=== PATIENT | female | born 1960 | race Caucasian/White ===

== ENCOUNTER 2024-06-07 13:47 | Outpatient (OUT) | payer OTHER, SELFPAY | END 2024-06-07 13:48 | disposition home or self-care (01) | LOC: PST 13:51 | PROVIDERS: Visit Provider Surgery | DX: Z01.818 Encounter for other preprocedural examination (principal); Z12.11 Encounter for screening for malignant neoplasm of colon ==

== ENCOUNTER 2024-06-16 07:44 | Day surgery (SDC) | payer OTHER, SELFPAY ==
--- NOTE | 2024-06-14 | OP_ITS ---
OPERATION DATE: 06/16/2024 PREOPERATIVE DIAGNOSIS: Colorectal screening. POSTOPERATIVE DIAGNOSIS: 4 mm rectal polyp. PROCEDURE: Colonoscopy to cecum with cold snare polypectomy x1. SURGEON: Doron Earl M.D. ANESTHESIA: Monitored anesthesia care. ESTIMATED BLOOD LOSS: Less than 1 mL. INDICATIONS AND CONSENT: Patient is a 63-year-old female, presents for colorectal screening. Indications, risks, benefits, alternatives of proceeding with colonoscopy were explained extensively to the patient, including the risks of bleeding, colon perforation or anesthetic complications. All of her questions were answered. Informed consent was obtained. PROCEDURE: Patient brought to the operating room, placed in the left lateral decubitus position. Monitored anesthesia care was provided. Rectal exam was performed which showed no masses or blood. The scope was inserted into the anal canal. Under direct visualization was advanced. It was advanced to the cecum where cecal markings were clearly identified. This was aided with abdominal compression. There was noted to be a good prep. Upon withdrawal of the scope, mucosal surfaces were carefully examined. There were no mass lesions or inflammatory changes. No significant diverticulosis. Within the upper rectum, there was noted to be a 4 mm sessile polyp that was hyperemic. This was removed with cold snare with good hemostasis. The scope was retroflexed in the anal canal. There was no significant hemorrhoidal disease. Scope was then withdrawn. Patient tolerated procedure well, was sent to recovery room in good condition. f/u surveillance colonoscopy should likely be in 5 years, but will depend on the pathology report. CC: Patient?s family physician [email or web address]
--- OUTSIDE RECORDS SUMMARY | 2024-06-16 07:49 | XMS_ITS | CCD ---
Author Organization [facility] Inform ion Partnership [facility] Care Team Providers Care 3Rd Mate Name Role Phone VIKY PEREZ Admitting Unavailable VIKY PEREZ Attending Unavailable Viky Perez MD Primary Care Provider [phone] ISAURA KELLY Attending Unavailable HOY, VIKY M Referring Unavailable HOY, VIKY M Primary Care Unavailable ISAURA KELLY Attending Unavailable BROOKS REY Referring Unavailable HOY, VIKY M Primary Care Unavailable JULI FLAHERTY Attending Unavailabl e SLADEY, VIKY M Referring Unavailable HOY, VIKY M Primary Care Unavailable HOY, VIKY M Referring Unavailable HOY, VIKY M Primary Care Unavailable LEONID SU Attending Unavailable HOY, VIKY M Referring Unavailable HOY, VIKY M Primary Care Unavailable Ja Perezlas Primary Care Physician Doron BARRON Attending Unavailable Allergies Allergy Classification Reported Allergen(s) Allergy Type Date of Onset Reaction(s) Facility (2 sources) Ciprofloxacin; Translations: [Cipro] Drug Allergy [facility] Repository (2 sources) traMADol; Translations: [Ultram] Drug Allergy [facility] Repository (9 sources) Amoxicillin / Clavulanate; Translations: [AMOXICILLIN-PO T CLAVULANATE] Drug Allergy 1 Hives, Vomiting (disorder) [facility] (9 sources) Ciprofloxacin; Translations: [CIPROFLOXACIN] Drug Allergy 0 Hives, Eruption of skin (disorder) [facility] (8 sources) Purified Protein Derivative of Tuberculin; Translations: [TUBERCULIN PPD] Drug Allergy 1 Hives [facility] (3 sources) Tramadol-Celeco xib; Translations: [TRAMADOL-CELEC OXIB] Propensity to adverse reactions to drug 4 [facility] ([facility] sources) levoFLOXacin; Translations: [levofloxacin] Drug Allergy Vomiting (disorder) [facility] (1 source) traMADol; Translations: [tramadol] Drug Allergy Weal (disorder) [facility] (1 source) Amoxicillin / Clavulanate; Translations: [Augmentin] Drug Allergy [facility] Repository Medications Current Medications Medication Drug Class(es) Dates Sig (Normalized) Sig (Original) Albuterol (1 source) beta2-Adrenergic Agonist Start: 05-03-2024 take 2 puff(s) by inhalation every four hours Albuterol (Eqv-ProAir HFA) 2 puff(s), Inhalation, q4hr Shortness of breath or wheezing, Refill(s) 0 Start Date: 05/03/24 Status: Ordered cetirizine hydrochloride 10 mg oral tablet (1 source) Histamine-1 Receptor Antagonist Start: 05-03-2024 take 2 tablets by mouth once daily cetirizine 10 mg Tab 20 mg = 2 tab(s), Oral, Daily, Refills(s) 0 Start Date: 05/03/24 Status: Ordered dextromethorphan hydrobromide 1.5 mg/ml / pyrilamine maleate 1.5 mg/ml oral solution (1 source) Uncompetitive N-ldivdp-T-asparta te Receptor Antagonist, Sigma-1 Agonist Start: 02-12-2024 take 1 mL by mouth every eight hours Pyrilamine-Dextrome thorphan ([place] Dm) 7.5-7.5 mg/5 mL liquid Active 10 ML PO Every 8 hours 150 5 February 12, 2024 12:00am diphenhydrAMINE hydrochloride 25 mg oral capsule (6 sources) Histamine-1 Receptor Antagonist take 1 capsule by mouth every six hours as needed diphenhydrAMINE (BENADRYL) 25 mg capsule Take 1 capsule (25 mg total) by mouth every 6 (six) hours as needed for itching or allergies. 0 Active estrogens, conjugated (mcc) 0.625 mg/ml vaginal cream (6 sources) Estrogen conjugated estrogens (PREMARIN) vaginal cream Insert 0.625 g into the vagina every other day. 0 Active eszopiclone 3 mg oral tablet (7 sources) Start: 05-03-2024 take 1 tablet by mouth once daily at bedtime as needed eszopiclone 3 mg Tab 3 mg = 1 tab(s), Oral, Once a day (at bedtime), PRN for insomnia, Refills(s) 0 Start Date: 05/03/24 Status: Ordered take 1 tablet by mouth at bedtim e eszopiclone (LUNESTA) 3 mg tablet Take 1 tablet (3 mg total) by mouth in the morning. Take immediately before bedtime . 0 Active fexofenadine hydrochloride 180 mg oral tablet (6 sources) Histamine-1 Receptor Antagonist take 1 tablet by mouth once daily fexofenadine (ORLANDO) 180 mg tablet Take 180 mg by mouth daily. 0 Active gabapentin, bulk, 100 % powder (6 sources) Start: 10-30-19 gabapentin, bulk, 100 % powder Indications: Chronic hip pain after total replacement of left hip joint Formula #8E: baclo2%+diclo3%+DMSO 5%+gaba6%+lido2%+fabiano lo2%. Apply 1-2 gm topically to affected area TID-QID. 120 g 11 10/30/2023 Active ibuprofen 800 mg oral tablet (7 sources) Nonsteroidal Anti-inflammatory Drug Start: 05-03-20 take 1 tablet by mouth every eight hours as needed for pain ibuprofen 800 mg Tab 800 mg = 1 tab(s), Oral, q8hr, PRN as needed for pain, Refills(s) 0 Start Date: 05/03/24 Status: Ordered take 1 tablet by merlin th every eight hours as needed for pain ibuprofen (ADVIL,MOTRIN) 600 mg tablet T ag 1 tablet (600 mg total) by mouth every 8 (eight) hours as needed for pain. 0 Active levothyroxine sodium 0.05 mg oral tablet (7 sources) l-Thyroxine Start: 05-03-2024 take 1 tablet by mouth once daily Synthroid 50 mcg Tab 50 mcg = 1 tab(s), Oral, Daily, Refills(s) 0 Start Date: 05/03/24 Status: Ordered take 1 tablet by mouth in the mo rning SYNTHROID 50 mcg tablet Take 1 tablet (50 mcg total) by mouth in the morning. 0 Active losartan potassium 50 mg oral tablet (7 sources) Angiotensin 2 Receptor Keith Start: 05-03-2024 take 1 tablet by mouth once daily losartan 50 mg Tab 50 mg = 1 tab(s), Oral, Daily, Refills(s) 0 Start Date: 05/03/24 Status: Ordered take 1 tablet by mouth in the mo rning losartan (COZAAR) 50 mg tablet Take 1 tablet (50 mg total) by mouth in the morning. 0 Active methylPREDNISolone 4 mg oral tablet (1 source) Corticosteroid Start: 02-12-2024 take 1 tablet by mouth once Methylprednisolone (Medrol (Sven)) 4 mg tablets,dose pack Active 0 PO per package directions February 12, 2024 12:00am PO PER PKG DIR for 6 days montelukast 10 mg oral tablet (1 source) Leukotriene Receptor Antagonist Start: 05-03-2024 take 1 tablet by mouth once daily Singulair 10 mg Tab 10 mg = 1 tab(s), Oral, Daily, Refills(s) 0 Start Date: 05/03/24 Status: Ordered pramipexole dihydrochloride 0.5 mg oral tablet (3 sources) Nonergot Dopamine Agonist Start: 05-03-2024 take 1 tablet by mouth once daily pramipexole 0.5 mg oral tablet 0.5 mg = 1 tab(s), Oral, Daily, Refills(s) 0 Start Date: 05/03/24 Status: Ordered take 1 tablet by merlin th three times daily pramipexole (MIRAPEX) 0.5 mg tablet Take 1 tablet (0.5 mg total) by mouth 3 (three) times a day. 0 Active tiZANidine 4 mg oral tablet (7 sources) Central alpha-2 Adrenergic Agonist Start: 05-03-2024 take 2 tablets by mouth at bedtime tiZANidine 4 mg Tab 8 mg = 2 tab(s), Oral, Bedtime, Refills(s) 0 Start Date: 05/03/24 Status: Ordered tiZANidine (MARIA ELENA FLEX) 4 mg tablet Take 1 tablet (4 mg total) by mouth as needed for muscle spasms. 0 Active Trelegy Ellipta 200 mcg-62.5 mcg-25 mcg/inh inhalation powder (1 source) Start: 05-03-2024 take 1 puff(s) by inhalation once daily Trelegy Ellipta 200 mcg-62.5 mcg-25 mcg/inh inhalation powder 1 puff(s), Inhalation, Daily, Refill(s) 0 Start Date: 05/03/24 Status: Ordered Completed/Discontinued Medications Medication Drug Class(es) Dates Sig (Normalized) Sig (Original) betamethasone 3 mg/ml / betamethasone acetate 3 mg/ml injectable suspension (1 source) Corticosteroid Start: 12-08-2023 End: 12-08-2023 betamethasone acet & sod phos (CELESTONE) injection 12 mg Problems Active Problems Problem Classification Problem Date Documented Date Episodic/Chronic Allergic reactions (1 source) Eczema 05-03-2024 Episodic Anxiety disorders (1 source) Anxiety 05-03-2024 Chronic Esophageal disorders (1 source) Gastroesophageal reflux disease 05-03-2024 Chronic Essential hypertension (1 source) Hypertensive disorder 05-03-2024 Chronic Headache; including migraine (1 source) Migraine 05-03-2024 Chronic Neoplasms of unspecified nature or uncertain behavior (1 source) Neoplasm of meninges 05-03-2024 Episodic Osteoarthritis (6 sources) Arthritis of hip; Translations: [Unilateral primary osteoarthritis, unspecified hip] Onset: 04-04-2021 04-04-2021 Chronic Other connective tissue disease (1 source) History of total replacement of left hip joint; Translations: [Presence of left artificial hip joint] 12-08-2023 Chronic Other connective tissue disease (2 sources) Presence of left artificial hip joint; Translations: [Presence of left artificial hip joint] Onset: 10-30-2023 Chronic Other nervous system disorders (1 source) Other chronic pain; Translations: [Other chronic pain] Onset: 10-30-2023 Chronic Other non-traumatic joint disorders (1 source) Chronic pain following left total hip arthroplasty; Translations: [Pain in left hip] 10-30-2023 Episodic Other non-traumatic joint disorders (1 source) Pain in left hip; Translations: [Pain in left hip] Onset: 10-30-2023 Episodic Other screening for suspected conditions (not mental disorders or infectious disease) (1 source) Screening for malignant neoplasm of colon done; Translations: [Encounter for screening for malignant neoplasm of colon] Onset: 05-25-2024 Episodic Other upper respiratory disease (1 source) Seasonal allergic rhinitis 05-03-2024 Chronic Residual codes; unclassified (1 source) Insomnia 05-03-2024 Episodic Residual codes; unclassified (1 source) Tobacco user 05-03-2024 Episodic Spondylosis; intervertebral disc disorders; other back problems (5 sources) Lumbar spondylosis; Translations: [Spondylosis without myelopathy or radiculopathy, lumbar region] Onset: 10-30-2023 10-30-2023 Chronic Spondylosis; intervertebral disc disorders; other back problems (6 sources) Low back pain; Translations: [Low back pain, unspecified back pain laterality, unspecified chronicity, unspecified whether sciatica present] Onset: 12-08-2023 10-30-2023 Episodic Thyroid disorders (1 source) Hypothyroidism 05-03-2024 Chronic Unclassified (1 source) Low back pain, unspecified; Translations: [Low back pain, unspecified] Onset: 10-30-2023 Unclassified (1 source) Lumbar stenosis with neurogenic claudication Onset: 10-30-2023 Unclassified (1 source) Emphysema 05-03-2024 Unclassified (1 source) Patient encounter status 05-25-2024 Past or Other Problems Problem Classification Problem Date Documented Date Episodic/Chronic Complication of device; implant or graft (6 sources) Pain due to hip joint prosthesis; Translations: [Pain due to internal orthopedic prosthetic devices, implants and grafts, initial encounter] Onset: 06-12-2023 06-12-2023 Episodic Other connective tissue disease (6 sources) Tendinitis of hip; Translations: [Other specified enthesopathies of left lower limb, excluding foot] Onset: 06-12-2023 06-12-2023 Episodic Other connective tissue disease (7 sources) Trochanteric bursitis of left hip; Translations: [Trochanteric bursitis, left hip] Onset: 06-12-2023 06-12-2023 Episodic Other connective tissue disease (1 source) Trochanteric bursitis, left hip; Translations: [Trochanteric bursitis, left hip] Onset: 06-12-2023 Episodic Results Test Name Value Interpretation Reference Range Facil ity Ambulatory Visit Summaryon 0 05-25-2024 Ambulatory Visit Summary Ambulatory Visit Summary ERASTO PAIGEBETINA Aguilar :1960 Visit Date:05/25/2024 Ambulatory Visit Instructions Your Diagnosis Screening for malignant neoplasm of colon Your Care Team Attending Physician - ANDERSON BROWN, Doron Jaquez Primary Care Physician - Viky Perez MD This Is Your Medications List Contact prescribing physician if questions or concerns albuterol (Albuterol (Eqv-ProAir HFA)) cetirizine (cetirizine 10 mg Tab) eszopiclone (eszopiclone 3 mg Tab) fluticasone/umeclidi nium/vilanterol (Trelegy Ellipta 200 mcg-62.5 mcg-25 mcg/inh inhalation powder) ibuprofen (ibuprofen 800 mg Tab) levothyroxine (Synthroid 50 mcg Tab) losartan (losartan 50 mg Tab) montelukast (Singulair 10 mg Tab) pramipexole (pramipexole 0.5 mg oral tablet) tizanidine (tiZANidine 4 mg Tab) Procedures Performed Abdominal hysterectomy, Arthroplasty of left hip, Cataract extraction, Cholecystectomy, Open fracture of tibia AND fibula, Repair of ventral hernia, Rotator cuff repair, Tonsillectomy and adenoidectomy. Discharge Vitals Heart Rate (Peripheral) 72 Respiratory Rate 16 Blood Pressure 142/82 Height 162.5 cm Height 64 in Weight 58.5 kg Weight 128.7 lb BMI 22.15 Medications What How Much When Instructions Unchanged albuterol (Albuterol (Eqv-ProAir HFA)) 2 Puffs Inhalation Every 4 hours as needed for Shortness of breath or wheezing Contact prescribing physician if questions or concerns Unchanged cetirizine (cetirizine 10 mg Tab) 2 Tablets By Mouth Every day Contact prescribing physician if questions or concerns Unchanged eszopiclone (eszopiclone 3 mg Tab) 1 Tablets By Mouth Once a day (at bedtime) as needed for for insomnia Contact prescribing physician if questions or concerns Unchanged fluticasone/ umeclidinium/ vilanterol (Trelegy Ellipta 200 mcg-62.5 mcg-25 mcg/ inh inhalation powder) 1 Puffs Inhalation Every day Contact prescribing physician if questions or concerns Unchanged ibuprofen (ibuprofen 800 mg Tab) 1 Tablets By Mouth Every 8 hours as needed for as needed for pain Contact prescribing physician if questions or concerns Unchanged levothyroxine (Synthroid 50 mcg Tab) 1 Tablets By Mouth Every day Contact prescribing physician if questions or concerns Unchanged losartan (losartan 50 mg Tab) 1 Tablets By Mouth Every day Contact prescribing physician if questions or concerns Unchanged montelukast (Singulair 10 mg Tab) 1 Tablets By Mouth Every day Contact prescribing physician if questions or concerns Unchanged pramipexole (pramipexole 0.5 mg oral tablet) 1 Tablets By Mouth Every day Contact prescribing physician if questions or concerns Unchanged tizanidine (tiZANidine 4 mg Tab) 2 Tablets By Mouth At bedtime Contact prescribing physician if questions or concerns Allergies Augmentin (Emesis) Cipro (Rash) Levaquin (Emesis) Ultram (Hives) Problems Ongoing - Any problem that you are currently receiving treatment for. Anxiety Eczema Emphysema Gastroesophageal reflux disease Hypertensive disorder Hypothyroidism Insomnia Lumbar spondylosis Meningioma Migraine Screening for malignant neoplasm of colon Seasonal allergic rhinitis Tobacco user Patient Survey You may receive a survey via text or e-mail asking about your office visit. Please share your experience with us by completing your survey. We appreciate your feedback and thank you for choosing us for your care. Normal [facility] [place] AMB TRANSORAMINAL EPIDURA L INJon 12-30-2023 [place] AMB TRANSORAMINAL EPIDURAL INJ [place] AMB TRANSORAMINAL EPIDURAL INJ CLINICAL INFORMATION: Lumbar spondylosis IMPRESSION: * Intraoperative fluoroscopy provided. The reference air kerma was 2.08 mGy. Finalized by Larry Gotti MD on 12/30/2023 10:43 AM [facility] $ Large Joint Injection: L g reater trochanteric bursaon 12-08-2023 Leonid Su MD 12/09/2023 7:13 PM $ Large Joint Injection: L greater trochanteric bursa on 12/08/2023 10:36 AM Indications: pain Details: 22 G needle, lateral approach Medications: 12 mg betamethasone acet & sod phos 6 mg/mL Outcome: tolerated well, no immediate complications The patient was instructed to use ice, NSAIDs, or Tylenol for pain as needed. Patient was also educated on possibility for blood glucose elevation following the injection. The patient will call with any signs or concerns. Procedure, treatment alternatives, risks and benefits explained, specific risks discussed. Patient was prepped and draped in the usual sterile fashion. MANUALLY TRANSCRIBED RESULTS [facility] Vital Signs Date Time Vital Sign Value Performing Clinician Rabia hurtado 05-25-2024 13:22-0400 Blood Pressure Location Doron BARRON [facility] 05-25-2024 13:22-0400 Diastolic blood pressure 82 mm[Hg] Doron BARRON [facility] 05-25-2024 13:22-0400 Heart rate 72 /min Doron BARRON [facility] 05-25-2024 13:22-0400 Respiratory rate 16 /min Doron BARRON [facility] 05-25-2024 13:22-0400 Systolic blood pressure 142 mm[Hg] Doron BARRON [facility] 02-12-2024 09:22-0400 Body height 162.56 cm [facility] 02-12-2024 09:22-0400 Body mass index (BMI) [Ratio] 23 kg/m2 [facility] 02-12-2024 09:22-0400 Body temperature 96.4 [degF] [facility] 02-12-2024 09:22-0400 Body weight 60.83 kg [facility] 02-12-2024 09:22-0400 Diastolic blood pressure 80 mm[Hg] [facility] 02-12-2024 09:22-0400 Heart rate 101 /min [facility] 02-12-2024 09:22-0400 Respiratory rate 18 /min [facility] 02-12-2024 09:22-0400 SaO2% (BldA) [Mass fraction] 98 % [facility] 02-12-2024 09:22-0400 Systolic blood pressure 130 mm[Hg] [facility] 12-30-2023 09:00-0400 Diastolic blood pressure 76 mm[Hg] Isaura Kelly MD Work Phone: [facility] 12-30-2023 09:00-0400 Heart rate 72 /min Isaura Kelly MD Work Phone: [facility] [employer] [facility] 12-30-2023 09:00-0400 Respiratory rate 16 /min [facility] 12-30-2023 09:00-0400 Systolic blood pressure 136 mm[Hg] [facility] Kelly [facility] 12-08-2023 09:30-0500 Body height 162.6 cm Leonid Su MD [facility] 12-08-2023 09:30-0500 Body mass index (BMI) [Ratio] 22.31 kg/m2 Leonid Su MD [facility] 12-08-2023 09:30-0500 Body weight 58.97 kg Leonid Su MD [facility] 10-30-2023 09:55-0500 Body height 162.6 cm Isaura Kelly MD [facility] 10-30-2023 09:55-0500 Body mass index (BMI) [Ratio] 22.31 kg/m2 Isaura Kelly MD [facility] 10-30-2023 09:55-0500 Body weight 58.97 kg Isaura Kelly MD Work Phone: [facility] Encounters Encounter Date Encounter Type Care Provider Facility Start: 05-25-2024 End: 05-25-2024 ambulatory Doron BARRON [facility] Start: 05-25-2024 End: 05-25-2024 Patient encounter procedure Doron BARRON [facility] Start: 04-20-2024 ambulatory Doron BARRON Facility:[facility] Start: 02-12-2024 End: 02-12-2024 ambulatory [facility] Work Phone: Start: 02-12-2024 End: 02-12-2024 Patient encounter procedure [facility] Work Phone: Start: 12-30-2023 End: 12-30-2023 ambulatory [facility] Start: 12-30-2023 End: 12-30-2023 Patient encounter procedure Isaura Kelly MD Work Phone: [facility] Comment on above: Lumbar stenosis with neurogenic claudication (Primary Dx) Start: 12-08-2023 End: 12-08-2023 ambulatory LEONID SU [facility] Start: 12-08-2023 End: 12-08-2023 Office outpatient visit 15 minutes Leonid Su MD [facility] Comment on above: Trochanteric bursiti s of left hip (Primary Dx); History of total hip arthroplasty, left; Lumbar stenosis with neurogenic claudication Start: 12-05-2023 Orders Only [facility] Comment on above: Lumbar spondylosis ( Primary Dx) Start: 12-02-2023 End: 12-02-2023 ambulatory [facility] Start: 12-02-2023 End: 12-02-2023 Patient encounter procedure Juli Flaherty DO Work Phone: [facility] Comment on above: Lumbar stenosis with neurogenic claudication Start: 12-02-2023 Telephone encounter Andrew Flaherty DO Work Phone: [facility] Start: 10-30-2023 End: 10-30-2023 ambulatory [facility] Start: 10-30-2023 End: 10-30-2023 Office consultation new/estab patient 60 min Isaura Kelly MD Work Phone: [facility] Comment on above: Lumbar spondylosis ( Primary Dx); Chronic hip pain after total replacement of left hip joint; Low back pain, unspecified back pain laterality, unspecified chronicity, unspecified whether sciatica present Start: 10-25-2020 Patient encounter procedure VIKY PEREZ Facility: Procedures Date Procedure Procedure Detail Performing Clinician Start: 12-08-2023 Follow-up visit Follow-up LEONID SU Start: 12-08-2023 Arthrocentesis aspir &/inj major jt/bursa w/o us Leonid Su MD Work Phone: Abdominal hysterectomy Edgar cyr NILL Cholecystectomy Doron NILL Comment on above: x 3 Extraction of cataract Edgar cyr NILL Open fracture of tib ia AND fibula (disorder) Doron NILL Repair of joint of left hip Doron NILL Repair of musculoten dinous cuff of shoulder Doron NILL Tonsillectomy and adenoidectomy Doron NILL Plan of Treatment Date Care Activity Detail Author Start: 12-08-2024 Adult BMI Screening Adult BMI Screening [facility] Start: 12-08-2024 Tobacco Screening Tobacco Screening [facility] Start: 10-30-2024 Adult BMI Screening Adult BMI Screening [facility] Start: 09-18-2024 Tobacco Screening Tobacco Screening [facility] Start: 03-25-2024 End: 03-25-2024 Patient encounter procedure 03/25/2024 9:10 AM EDT Office Visit [facility] [address] [place] [id number] Leonid Su MD [address] [place] [address] [facility] Start: 02-25-2024 End: 02-25-2024 Patient encounter procedure 02/25/2024 11:00 AM EDT Office Visit [facility] [address] [facility] [address] [place] [id number] Isaura Kelly MD [address], [facility] [address] [place] [address] [facility] Start: 12-08-2023 End: 12-08-2023 Patient encounter procedure [facility] Start: 12-05-2023 End: 12-05-2024 RF Guidance for injection of Lumbar spine Fluoroscopy AMB transforaminal epidural inj Imaging Routine Lumbar spondylosis Expected: 12/05/2023, Expires: 12/05/2024 [facility] Work Phone: Comment on above: Expected: 12/05/2023, Expires: Start: 12-02-2023 End: 12-02-2023 Patient encounter procedure 12/02/2023 2:45 PM EST Procedure visit [facility] [address] [facility] [address] [place] [phone] Juli Flaherty DO [address] [facility] [address] [place] [address] [facility] Start: 06-20-2023 COVID-19 Vaccine ( season) COVID-19 Vaccine ( season) [facility] Start: 06-20-2023 Influenza vaccination Influenza Vaccine [facility] Start: 2011 Administration of varicella zoster vaccine Zoster (Shingles) Vaccine (1 of 2) [facility] Start: 1980 DTaP,Tdap and Td Vaccines (1 - Tdap) DTaP,Tdap and Td Vaccines (1 - Tdap) [facility] Start: 1973 Depression Screening Depression Screening [facility] Immunizations Immunization Date Immunization Notes Care Provider Fa cility 08-10-2022 influenza virus vaccine, unspecified formulation Isaura Kelly MD Work Phone: [facility] 11-22-2020 COVID-19, mRNA, LNP- S, PF, 100mcg/0.5mL Dose Isaura Kelly MD [facility] Comment on above: Result Comment: 2023: [id number] 10-25-2020 COVID-19, mRNA, LNP- S, PF, 100mcg/0.5mL Dose Isaura Kelly MD Work Phone: [facility] Comment on above: Result Comment: 2023: [id number] Payers Date Payer Category Payer Unknown [id number] 2023 Unknown AN[employer]M [employer] OUT OF STATE PPO/TRUST [id number] 2023-Present [phone] [id number] [place] [address] [id number] 2023 Unknown [id number] 1960 Unknown [id number] 1960 Unknown [id number] 1960 Unknown [id number] 1960 Unknown [id number] 1960 Unknown [id number] 1960 Unknown [id number] 1960 Unknown [id number] 1958 Self-pay Social History Date Type Detail Facility Start: 10-07-2023 End: 05-25-2024 Tobacco smoking status NHIS Ex-smoker [facility] End: 10-20-2016 History of tobacco use Current smoker [facility] End: 10-20-2016 History of tobacco use Cigarette Smoker [facility] Start: 10-31-2020 End: 10-07-2023 Cigarettes smoked current (pack per day) - Reported 1 [facility] Start: 10-07-2023 Tobacco use and exposure Smokeless tobacco non-user [facility] Start: 10-07-2023 End: 12-08-2023 Alcohol intake Lifetime non-drinker (finding) [facility] Start: 03-22-2020 End: 10-31-2020 Alcohol Use Disorder Identification Test - Consumption [AUDIT-C] [facility] How often to you hav e a drink containing alcohol? Never [facility] Average Number of Drinks Not on file [facility] Start: 1960 Sex Assigned At Female [facility] Start: 12-14-2021 Gender identity Identifies as female gender (finding) [facility] Start: 12-14-2021 Sexual orientation Heterosexual (finding) [facility] Medical Equipment Procedure Code Equipment Code Equipment Origin al Text Equipment Identifier Dates Hd Fem 36mm Biol ox Lexi S - [id number] Start: 04-04-2021 Functional Status Date Assessment Result Facility 05-25-2024 Functional Status N/A [facility] [place] Clinical Notes 10-30-2023 to 05-25-2024 Discharge Amaris Kelly MD - 12/30/2023 8:40 AM Dina Su MD - 12/08/2023 9:30 AM Shaun Bird CMA - 12/05/2023 8:26 AM Gracia Flaherty DO - 12/02/2023 2:45 PM EST Note Date & Type Note Facility 05-25-2024 Note General Surgery Offi ce/Clinic Note Chief Complaint consultation for colonoscopy HPI Staff 63 year old female presents on consultation from Dr. Perez for screening colonoscopy. Denies abdominal or rectal pain. No rectal bleeding or change in bowel habits. Denies nausea or vomiting. No unexplained weight loss. Never had colonoscopy in the past. No known family history of colon cancer. History of Present Illness 63 yo female with h/o htn, hypothyroidism, COPD, migraines, lumbar spondylosis, GERD, referred for colorectal screening; denies change in bms or blood in stools, no abd complaints; abdominal operations significant for cholecystectomy, YOU, ventral hernia repair with mesh, no previous colonoscopy; on ibuprofen prn, no asa; former smoker; no fmhx of colon cancer or IBD. Review of Systems PHQ Score Initial Depression Screen Score: 0 SCORE ROS - Provider Constitutional: no fever, no sweats, no weight loss. Eyes: no glasses, no blurred vision, no visual loss. ENMT: no dentures, no hoarseness, no swallowing difficulties, no hearing loss, no ear infection(s), no nose bleeds. Cardiovascular: normal blood pressure, no chest pain, regular heartbeat, no heart murmur. Respiratory: no shortness of breath, no cough, no asthma, no wheezing. Gastrointestinal: no nausea, no vomiting, no diarrhea, no constipation, no blood in stool, no change in bowel habits, no abdominal pain, no hepatitis. Genitourinary: no kidney stones, no urine infection, no dysuria. Musculoskeletal: no pain, no weakness. Skin: no changing moles, no rash, no skin lumps. Neurologic: no seizures, no epilepsy, no headache. Psychiatric: no emotional or psychiatric problem. Heme/Lymph: no bleeding problems, no anemia, no blood clots, no transfusions. Allergy/Immunologic: no swollen lymph nodes/glands, no IV drug abuse. Other: Additional ROS info: Except as noted in the above Review of Systems and in the History of Present Illness, all other systems have been reviewed and are negative or noncontributory. Physical Exam Vitals & Measurements HR: 72(Peripheral) RR: 16 BP: 142/82 HT: 64 in HT: 162.5 cm WT: 58.5 kg WT: 128.7 lb BMI: 22.15 HEENT: normal conjunctiva, sclera clear, no scleral icterus, EOM intact, PERRLA, oral mucosa moist without lesions. Neck: trachea midline, no mass, symmetric, no thyromegaly or nodules, no adenopathy Respiratory: lungs CTA, respirations non labored. Cardiovascular: regular rate and rhythm, no murmur, no pedal edema or varicosities. Gastrointestinal: soft, non distended, no tenderness, no masses, no palpable hernias, diastasis recti no, no hepatosplenomegaly; normal bs Lymphatic: no cervical adenopathy, no suprclavicular adenopathy. Musculoskeletal: normal gait, digits and nails without infection, nodes, cyanosis, clubbing. Skin: no rashes, no lesions, no ulcers, no subcutaneous nodules, induration. Psychiatric/Neuro: oriented to time, place, person, judgement normal, affect appropriate for age, insight intact, no focal deficits. Tests: review of old records completed , Discussed surgical options, risks, and possible complications with patient. Assessment/Plan 1. Screening for malignant neoplasm of colon (Z12.11: Encounter for screening for malignant neoplasm of colon) plan colonoscopy under anesthesia, informed consent obtained. Follow-up No qualifying data available Problem List/Past Medical History Ongoing Anxiety Eczema Emphysema Gastroesophageal reflux disease Hypertensive disorder Hypothyroidism Insomnia Lumbar spondylosis Meningioma Migraine Screening for malignant neoplasm of colon Seasonal allergic rhinitis Tobacco user Historical No qualifying data Procedure/Surgical History Abdominal hysterectomy, Arthroplasty of left hip, Cataract extraction, Cholecystectomy, Open fracture of tibia AND fibula, Repair of ventral hernia, Rotator cuff repair, Tonsillectomy and adenoidectomy. Medications Albuterol (Eqv-ProAir HFA), 2 puff(s), Inhalation, q4hr, PRN cetirizine 10 mg Tab, 20 mg= 2 tab(s), Oral, Daily eszopiclone 3 mg Tab, 3 mg= 1 tab(s), Oral, Once a day (at bedtime), PRN ibuprofen 800 mg Tab, 800 mg= 1 tab(s), Oral, q8hr, PRN losartan 50 mg Tab, 50 mg= 1 tab(s), Oral, Daily pramipexole 0.5 mg oral tablet, 0.5 mg= 1 tab(s), Oral, Daily Singulair 10 mg Tab, 10 mg= 1 tab(s), Oral, Daily Synthroid 50 mcg Tab, 50 mcg= 1 tab(s), Oral, Daily tiZANidine 4 mg Tab, 8 mg= 2 tab(s), Oral, Bedtime Trelegy Ellipta 200 mcg-62.5 mcg-25 mcg/inh inhalation powder, 1 puff(s), Inhalation, Daily Allergies Augmentin (Emesis) Cipro (Rash) Levaquin (Emesis) Ultram (Hives) Social History Alcohol - Denies Alcohol Use, 05/25/2024 Substance Abuse - Denies Substance Abuse, 05/25/2024 Tobacco Former smoker, quit more than 30 days ago Tobacco Use:. Never Smokeless Tobacco Use:. Cigarettes, 1 per day. Started age 20.0 Years. Stopped age 58 Years., 05/25/2024 Family History Hyperte (more content not included)... [facility] Comment on above: Result Comment: Elec tronically Signed By: ANDERSON BROWN, Doron Gross.anson\Date and Time Signed: 05/25/24 13:55 EDT 12-30-2023 Instructions Ne Steve RN - 12/30/2023 8:42 AM EDT EPIDURAL STEROID INJECTION DISCHARGE INSTRUCTIONS: Physical Medicine and Rehabilitation has recommended an Epidural Steroidal Injection for you in the office today. An epidural steroid injection (JUNI) is a procedure to inject steroid medicine into the epidural space. The epidural space is between your spinal cord and vertebrae. Steroids reduce inflammation and fluid buildup in your spine that may be causing pain. The following is information that he would like for you to have: Contents of the injection.....................Th e injection consisted of two medications; Cortisone (anti-inflammatory that may take 2-3 days to take effect, in some cases up to two weeks) and lidocaine (a numbing agent that will last 2-3 hours). Once lidocaine wears off, you may have an increase in your pain. We strongly encourage icing the affected area for 20 minutes, 3-4 times per day. Post injection instructions..................It is recommended that you refrain from any high-level activities for approximately 24-48 hours. You may remove the bandage before you go to bed the day of your procedure. You may take a shower, but do not take a bath or soak in a hot tub for at least 48 hours. You may ice the injection site to prevent soreness if soreness occurs. Do not drive or use heavy machinery for 24 hours. Steroid injections alone will not control your pain. The injections are meant to be used with other treatments, such as physical therapy. POSSIBLE SIDE EFFECTS Skin discoloration................... .............Individuals may experience some skin discoloration locally at the site of injection. Steroid flare-up........................ ............There is the possibility of an increase in discomfort within 48 hours following the injection. This is called a flare. To help avoid this, adhere to the activity restriction mentioned above. Infection....................... .........................There is <1% chance of infection. If you notice any signs of infection (redness, warmth, drainage, fever greater than 100 ) should call the Physical Medicine and Rehabilitation office immediately at [phone]. Diabetic Patients........................ .........In the case of steroid use, an increase in blood sugar or hyperglycemia may occur. Please monitor your blood sugar closely for the next few days. If your blood sugar becomes significantly elevated please either contact this office, your Primary Care Physician, or seek immediate medical attention. WHEN TO CONTACT THE DOCTOR'S OFFICE You have nausea or vomiting. Your face or neck is red for a few days and you feel warm. You have more pain than you had before the procedure. You have swelling in your hands or feet. You have questions or concerns about your condition or care. WHEN TO SEEK IMMEDIATE MEDICAL ATTENTION Blood soaks through your bandage. Your wound is red, swollen, or draining pus. You have a fever or chills, severe back pain, and the procedure area is sensitive to the touch. You have a seizure. You have trouble moving your legs. You have weakness or numbness in your legs that persists for more than 3 hours following the injection. You cannot control when you urinate or have a bowel movement. Patients that have stopped medications for this procedure should contact the prescribing provider for instructions regarding when to restart medication(s). You can contact our office at any time at . If you are calling after hours or on the weekend you may contact the Emergency number given when you call. Follow up with your healthcare provider as directed: Please have your questions written down so you remember to ask them during your next visit. documented in this encounter [facility] [employer] [facility] 12-30-2023 History of Presen t illness Narrative SUBJECTIVE Vladimir Paige is a 63 y.o. female here today for a transforaminal epidural steroid injection All of the potential risks of the planned procedure was discussed with Vladimir today. These include, but are not limited to, bleeding (including epidural hematoma, in the case of epidural injections); infection; spinal headache due to dural puncture; and allergic reaction. In the case of steroid use an increase in blood sugar or hyperglycemia may occur (especially in diabetic patients). Fluid retention, elevated blood pressure, facial flushing are also potential side effects with steroid use. Vladimir reported understanding of these potential side effects and did consent to the procedure as planned. Vladimir did sign the informed consent in my presence and is willing to proceed with the above-mentioned procedure today. The following portions of the Her history were reviewed and updated as appropriate: allergies, current medications, past family history, past medical history, past social history, past surgical history and problem list. Allergies Allergen Reactions Augmentin [Amoxicillin-Pot Clavulanate] Hives Ciprofloxacin Hives Tramadol-Celecoxib Hives Patient reported Tuberculin Ppd Hives Current Outpatient Medications Medication Sig Dispense Refill ibuprofen (ADVIL,MOTRIN) 600 mg tablet Take 1 tablet (600 mg total) by mouth every 8 (eight) hours as needed for pain. conjugated estrogens (PREMARIN) vaginal cream Insert 0.625 g into the vagina every other day. diphenhydrAMINE (BENADRYL) 25 mg capsule Take 1 capsule (25 mg total) by mouth every 6 (six) hours as needed for itching or allergies. eszopiclone (LUNESTA) 3 mg tablet Take 1 tablet (3 mg total) by mouth in the morning. Take immediately before bedtime . fexofenadine (ORLANDO) 180 mg tablet Take 180 mg by mouth daily. gabapentin, bulk, 100 % powder Formula #8E: baclo2%+diclo3%+DMSO5%+gaba6%+li do2%+prilo2%. Apply 1-2 gm topically to affected area TID-QID. 120 g 11 losartan (COZAAR) 50 mg tablet Take 1 tablet (50 mg total) by mouth in the morning. pramipexole (MIRAPEX) 0.5 mg tablet Take 1 tablet (0.5 mg total) by mouth 3 (three) times a day. SYNTHROID 50 mcg tablet Take 1 tablet (50 mcg total) by mouth in the morning. tiZANidine (ZANAFLEX) 4 mg tablet Take 1 tablet (4 mg total) by mouth as needed for muscle spasms. No current facility-administered medications for this visit. PRE-PROCEDURE DIAGNOSIS 1. Lumbar stenosis with neurogenic claudication POST-PROCEDURE DIAGNOSIS 1. Lumbar stenosis with neurogenic claudication Date of Procedure: December 30, 2023 Time of Procedure: 9:03 AM PROCEDURE NOTE PROCEDURE PERFORMED: 1) Left L4-L5 Interspace Transforaminal Epidural Injection 2) Fluoroscopic needle guidance REASON FOR PROCEDURE: Back Pain with radicular symptoms PHYSICIAN: Isaura Kelly MD MEDICATIONS INJECTED: 1.0 mL of Dexamethasone 10mg/ml per level 0.5 ml of lidocaine preservative free at each level listed 0.4ml Omnipaque SEDATION: None LOCAL ANESTHETIC INJECTED: 5 mL of 1% lidocaine per site TECHNIQUE: Time-out was taken to identify the correct patient, procedure and side prior to starting the procedure. Lying in a prone position, She was prepped and draped in the usual sterile fashion using Betadine x 3 and a fenestrated drape. The area to be injected was determined under fluoroscopic guidance. Local anesthetic was given by raising a skin wheal and going down to the hub of a 25-gauge 1.5-inch needle. The 5.0-inch 22-gauge Quincke needle was advanced toward the pedicle at each of the above-named nerve root interspace(s). The needle was advanced to the final position via a lateral fluoroscopic intermittent image. Omnipaque was injected and showed epidural spread and there was no vascular runoff. After a negative aspiration, the medication was then injected. The procedure was completed without complications and was tolerated well. She was monitored after the procedure. The patient (or responsible green party) was given post-procedure and discharge instructions to follow at home. The patient was discharged in stable condition. A follow-up appointment was made. ESTIMATED BLOOD LOSS: None COMPLICATIONS: None She was instructed to await the effects of the steroid over the next several days, patient was given post injection instructions, to continue with physical therapy as tolerated after 48hours ASSESSMENT: 1. Lumbar stenosis with neurogenic claudication PLAN/DISCHARGE: No orders of the defined types were placed in this encounter. Vladimir Paige underwent transforaminal epidural steroid injections of the above-mentioned levels today. Fluoroscopy was used for image guidance and needle placement. Images were saved. There were no complications during the procedure. The patient tolerated it well. she was given written and verbal post injection instructions. she was instructed to go home and take it easy for the next 48-72 hours. she willfollow-up as scheduled. It was explained to her that the procedure may need to be repeated in the future depending on the results of today's injection. she reported understanding of these instructions and signed discharge paperwork to that effect No follow-ups on file. There are no Patient Instructions on file for this visit. documented in this encounter [facility] 12-08-2023 History of Presen t illness Narrative Associated Order(s): $ Large Joint Injection: L greater trochanteric bursa Post-Procedure Diagnose(s): Trochanteric bursitis of left hip Images from the original note were not included. [facility] [address] [facility] [id number] Name: Vladimir Paige : 1960 Chief Complaint Patient presents with Left Hip - Follow-up EMG FU Left troch bursa [facility] 11.30.23- effective one month. Emg 2.13.24- [facility]. Awaiting to get injection in back with pain management Subjective Vladimir Paige is a 63 y.o. year old female who presents to the office today for recheck of her left hip. She underwent a total hip arthroplasty in March [address] Flores. I initially saw her in May of 2023 with continued pain. She was diagnosed with trochanteric bursitis and has also seen Dr. Rey for lumbar stenosis. She was last seen by me on 09/18/2023 at which time she had a trochanteric bursal injection. She notes almost 100% pain relief for 1 month. Since then she does feel her pain has been better than what it was initially. Most days she rates her pain anywhere from 2 to 4/10. Still majority of her pain is lateral. She has no longer experiencing anterior thigh pain or concerns of falling. She has had an EMG since her last visit with me and has seen Pain Management. She is awaiting approval for injections for her back. She continues to take Motrin and Tylenol as needed. Past Medical, Family, Surgical, and Social History, as well as Medications, Allergies, and Review of Systems were reviewed and can be seen in the patient's chart. Objective Body mass index is 22.31 kg/m . Vladimir is alert and oriented, in no acute distress. Left hip has mild tenderness to palpation of the trochanteric bursa, improved in comparison to last visit. She is able to do straight leg raise. Hip flexion to 90 . Her hip is freely movable with internal and external rotation but she does report some lateral discomfort with terminal internal rotation. She has 5/5 hip flexor and abductor strength. 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 There was no acute or chronic denervation on needle exam. Assessment 1. Trochanteric bursitis of left hip - $ Large Joint Injection: L greater trochanteric bursa 2. History of total hip arthroplasty, left 3. Lumbar stenosis with neurogenic claudication Plan: Polly's EMG revealed some concern for possible neuropathy from her back. She is in the approval process for epidural injections with pain management. In regards to her hip however she had almost 100% pain relief for a month following previous trochanteric bursal injection. Overall she feels her hip symptoms are improving and was interested in having a repeat injection today. Procedure note can be seen below. I would like to see her back in 3 months, assuming she will have had the epidural injections for re-evaluation. She is agreeable with this plan. $ Large Joint Injection: L greater trochanteric bursa on 12/08/2023 10:36 AM Indications: pain Details: 22 G needle, lateral approach Medications: 12 mg betamethasone acet & sod phos 6 mg/mL Outcome: tolerated well, no immediate complications The patient was instructed to use ice, NSAIDs, or Tylenol for pain as needed. Patient was also educated on possibility for blood glucose elevation following the injection. The patient will call with any signs or concerns. Procedure, treatment alternatives, risks and benefits explained, specific risks discussed. Patient was prepped and draped in the usual sterile fashion. I, Leonid Su MD, personally performed the face to face evaluation on this patient. I discussed with the patient and confirmed the accuracy and completeness of the aforementioned history prepared by the [facility] practice provider, and I personally performed the clinical examination of the patient. I discussed the treatment plan with the patient. I have updated the above note prior to signing to reflect my evaluation of the patients condition and treatment plan. Other significant notes are as follows: Polly is well known to me. She has had left hip pain and weakness s/p ADRYAN by OSH provider. EMG suggests lumbar nerve etiology. She has had extensive workup for her hip and although implant position is not perfect I do not thing this is an implant related issue but rather secondary to her L spine. I encouraged her to continue with pain management treatment and follow up with Dr. Rey. I would not recommend we do anything other than conservative management for her bursal pain until L spine is treated. Leonid Su MD Adult Reconstruction [facility] [address] [place] [address], [address] W: [phone] F: [phone] documented in this encounter [facility] 12-05-2023 History of Presen t illness Narrative Previous Evaluation and Treatment Diagnostics: X-ray Medications tried: NSAIDS and Muscle Relaxants Home Exercise Program: Guided by physician Physical Therapy: none Editorial Manager: yes Pain Management: Medications Prior Surgery: None Pain Score: 9/10 documented in this encounter [facility] 12-02-2023 History of Presen t illness Narrative See media tab documented in this encounter [facility] 12-02-2023 Miscellaneous Notes Sergio joyce called for CPT code. Looked on referral was not there found on [employer] and found [id number] documented in this encounter [facility] 12-02-2023 Telephone encounter Note Sergio joyce called for CPT code. Looked on referral was not there found on [employer] and found [id number] [facility] 10-30-2023 History of Presen t illness Narrative Images from the original note were not included. [facility] [place] [id number] [facility], [address] [place] [address] Patient: Vladimir Paige Lauren EasonOLillyB: 1960 PCP: VIKY PEREZ MD Physician: Isaura Kelly MD Date of Visit: 10/30/23 CHIEF COMPLAINT Chief Complaint Patient presents with Lumbar stenosis with neurogenic claudication New patient referral of Dr. Rey presents for evaluation of chronic low back and left hip symptoms. Patient reports peristent bilateral lbp/left hip pain, aggravated upon bending and prolonged weight bearing. Recent hx of falls. LT GTB CSI w/ Dr. Su. EMG LLE scheduled in December. Lumbar xrays 08/27/23 shows spondylolisthesis L4-5 and right hip osteoarthritis. LT THR [address] Flores. No hx of lumbar surgery. Completed PT May. Tizanidine 4 mg nightly and Ibuprofen 800 mg TID. Pain 10. ASSESSMENT 1. Lumbar spondylosis 2. Chronic hip pain after total replacement of left hip joint 3. Low back pain, unspecified back pain laterality, unspecified chronicity, unspecified whether sciatica present - [facility] and Pain Management - Alejandra / ELIZABETH Short PLAN 63-year-old female here for initial evaluation of acute on chronic lateral hip pain low back pain. History of total hip replacement. Concern for postsurgical pain left hip. Also on the differential includes a lumbar facet referral over lumbar radiculopathy although less likely. Has completed multiple rounds of physical therapy, medications sensitivities to other NSAIDs, narcotics. No previous back surgeries or injections. Has an upcoming EMG nerve conduction study. MRI lumbar spine reviewed today Plan: At this point not convinced the main source of her pain is stemming from her back. Agree with plan for EMG nerve conduction study. If consistent with lumbar radiculopathy could consider TFESI. If no significant nerve damage could consider targeting the left lumbar facet joints. In the meantime we will start the patient on topical compound medication. Could also consider neuropathic medication like gabapentin in the future. Follow-up after EMG nerve conduction study. All questions were answered during the encounter and the patient was in agreement with plan of care. The patient was instructed to call if worsening or not improving. The patient was counseled regarding impressions, instructions for management and importance of compliance with treatment. Greater than 45min spent on face to face and non face to face encounter today. SUBJECTIVE Vladimir Paige is a 63 y.o. female who was referred to as a new patient. She is here today to discuss acute on chronic back and hip pain. Patient reports pain in the proximal left leg lateral hip. Has had multiple interventions including total hip replacement, multiple injections., tendon release. Burning aching pain in the lateral thigh. Does not go below the knee. Also endorses occasional back pain. Denies any pain radiating down her leg. No history of back surgeries or injections. Has been through multiple rounds of physical therapy. Medications sensitivities to other NSAIDs including Celebrex, narcotics having itching. Denies any new injuries traumas or falls. Has no other acute concerns today. MEDICAL/SURGICAL/FAMILY/SOCIAL HISTORY Past Medical History: Diagnosis Date Allergic seasonal Allergic rhinitis Arthritis Back pain Cataract mild, bilateral Disease of thyroid gland hypothyroidism HL (hearing loss) deaf in left ear Hyperlipidemia Hypertension Meningioma (CMS-HCC) Migraine PONV (postoperative nausea and vomiting) Shingles Varicella Visual impairment contact in right eye Past Surgical History: Procedure Laterality Date ADENOIDECTOMY ARM SURGERY left shoulder BRAIN SURGERY September 2003 meningioma removal SECTION Dec 1981, Nov 1984, Sep 1986 CHOLECYSTECTOMY CRANIECTOMY meningioma removed EYE SURGERY March 2023 cataract removal FRACTURE SURGERY ORIF of open compound tib/fib right HERNIA REPAIR 1996 abdominal hernia x 3 HYSTERECTOMY JOINT REPLACEMENT March 2021 left hip OOPHORECTOMY ORIF Right open compound tib/fib REMOVAL HARDWARE ANKLE Right 06/11/2021 Performed by Juan [facility] MD at [facility] REPLACEMENT TOTAL JOINT HIP Left 04/04/2021 Performed by Juan Flores MD at [facility] SHOULDER SURGERY TONSILLECTOMY TUBAL LIGATION Sep 1986 Family History Problem Relation Age of Onset Breast cancer Daughter 32 Arthritis Mother Hyperlipidemia Mother Hypertension Mother Hyperlipidemia Father Hypertension Father Anesthesia problems Neg Hx Social History Occupational History Not on file Tobacco Use Smoking status: Former Packs/day: 1.00 Years: 40.00 Additional pack years: 0.00 Total pack years: 40.00 Types: Cigarettes Quit date: 2016 Years since quittin.0 Smokeless tobacco: Never Substance and Sexual Activity Alcohol use: Never Drug use: Never Sexual activity: Yes Partners: Male ALLERGIES Allergies Allergen Reactions Augmentin [Amoxicillin-Pot Clavulanate] Hives Ciprofloxacin Hives Tuberculin Ppd Hives MEDICATIONS Current Outpatient Medications Medication Sig Dispense Refill conjugated estrogens (PREMARIN) vaginal cream Insert 0.625 g into the vagina every other day. diphenhydrAMINE (BENADRYL) 25 mg capsule Take 1 capsule (25 mg total) by mouth every 6 (six) hours as needed for itching or allergies. eszopiclone (LUNESTA) 3 mg tablet Take 1 tablet (3 mg total) by mouth in the morning. Take immediately before bedtime . fexofenadine (ORLANDO) 180 mg tablet Take 180 mg by mouth daily. ibuprofen (ADVIL,MOTRIN) 600 mg tablet Take 1 tablet (600 mg total) by mouth every 8 (eight) hours as needed for pain. losartan (COZAAR) 50 mg tablet Take 1 tablet (50 mg total) by mouth in the morning. SYNTHROID 50 mcg tablet Take 1 tablet (50 mcg total) by mouth in the morning. tiZANidine (ZANAFLEX) 4 mg tablet Take 1 tablet (4 mg total) by mouth as needed for muscle spasms. No current facility-administered medications for this visit. Current Controlled Meds Pain Medications ibuprofen (ADVIL,MOTRIN) 600 mg tablet Take 1 tablet (600 mg total) by mouth every 8 (eight) hours as needed for pain. tiZANidine (ZANAFLEX) 4 mg tablet Take 1 tablet (4 mg total) by mouth as needed for muscle spasms. REVIEW OF SYSTEMS Pertinent positives: Hip pain, back pain MSK review of systems as stated above. All other 10 systems were reviewed and were negative other than what was stated in the history of present illness. PHYSICAL EXAM There were no vitals filed for this visit. Musculoskeletal: Focused back exam: ROM: Flexion, extension normal Tender to palpation: Nontender over left SI J, lateral hip Facet loading: Equivocal Straight leg raise: Slump test negative bilateral Lower extremity motor: 5/5 bilateral lower extremity, slight decrease in hip flexion in the left Bilateral lower extremities sensation intact Constitutional: Normal appearance; No acute distress HEENT: Atraumatic and normocephalic Hearing grossly normal External ears nose and mouth are grossly within normal limits on general examination Conjunctivae normal on appearance Pupils are equal on visual inspection Skin: No edema No redness or rashes Respiratory: Normal respiratory effort No respiratory distress Neurologic: Alert and oriented Gait antalgic Psychiatric: Normal mood and affect. Normal insight and judgment IMAGING I have personally reviewed patient's imaging. MRI lumbar spine from 05/22/2023 reviewed showing facet arthropathy PROCEDURE No new ====== Counseling given: Not Answered Thank you very much for allowing me to participate in the care of your patient, Vladimir PaigeLilly Thank you for the referral . If you have any questions, please do not hesitate to contact me Disclaimer: This note was completed using a voice physician relations specialist system. Every effort was made to ensure accuracy. However, inadvertent computerized physician relations specialist errors may be present. Please contact author for any clarification documented in this encounter [facility] [employer] [facility] Evaluation + Plan note No data available for this section [facility] Evaluation note Diagnosis Lumbar spondylosis- Primary Lumbosacral spondylosis without myelopathy Chronic hip pain after total replacement of left hip joint Low back pain, unspecified back pain laterality, unspecified chronicity, unspecified whether sciatica present [facility] Diagnosis Lumbar stenosis with neurogenic claudication documented [facility] Diagnosis Lumbar spondylosis- Primary Lumbosacral spondylosis without myelopathy documented [facility]* Diagnosis Trochanteric bursitis of left hip- Primary History of total hip arthroplasty, left Lumbar stenosis with neurogenic claudication documented [facility]* Diagnosis Lumbar stenosis with neurogenic claudication- Primary documented [facility] this [facility] noteNo assessment information available [facility] Work Phone: Hospital Discharge instructions No data available for this section [facility] InstructionsNot on filedocumented in this encounter [facility] SystemInstructionsNot on filedocumented in this encounter [facility] SystemInstructionsNot on filedocumented in this encounter [facility] No data available for this section [facility] Summary Purpose Family History No Family History Records FoundNo Family History Records FoundNo Family History Records Found No data available for this section No Family History Records Found Advance Directives No Advanced Directives Records FoundLatest Code Status on File Code Status Date Activated Date Inactivated Comments Full Code 04/04/2021 1:51 PM 04/04/2021 10:26 PM Latest Code Status on File Code Status Date Activated Date Inactivated Comments Full Code 04/04/2021 1:51 PM 04/04/2021 10:26 PM Advance Directive Response Recorded Date/ Time Advance Directives No February 11, 2 024 9:14am Reason for Referral Specialty Diagnoses / Procedures Referred By Contac t Referred To Contact Diagnoses Lumbar spondylosis Procedures Fluoroscopy AMB transforaminal epidural inj Isaura Kelly MD [facility] , [address] [address] Referral ID Status Reason Start Date Expiration Date V isits Requested Visits Authorized [id number] Pending Review 12/05/2023 12/04/2024 1 1 Chief Complaint and Reason for Visit Chief Complaint Upper back pain Additional Source Comments INFORMATION SOURCE (unrecogn ized section and content) DATE CREATED AUTHOR 10/26/2020 [facility] DATE CREATED AUTHOR AUTHOR'S ORGANIZ ATION 12/31/2023 [facility] DATE CREATED AUTHOR AUTHOR'S ORGANIZ ATION 12/31/2023 [facility] DATE CREATED AUTHOR AUTHOR'S ORGANIZ ATION 05/27/2024 Murry Vinod [facility] Reason for Visit (unrecogniz ed section and content) Reason Comments Lumbar stenosis with neuroge prachi claudication New patient referral of Dr. Krissy burk [facility] for evaluation of chronic low back and left hip symptoms. Patient reports peristent bilateral lbp/left hip pain, aggravated upon bending and prolonged weight bearing. Recent hx of falls. LT GTB CSI w/ Dr. Su. EMG LLE scheduled in December. Lumbar xrays 08/27/23 shows spondylolisthesis L4-5 and right hip osteoarthritis. LT THR [address] Flores. No hx of lumbar surgery. Completed PT May. Tizanidine 4 mg nightly and Ibuprofen 800 mg TID. Pain 10. Specialty Diagnoses / Procedures Referred By Contac t Referred To Contact Physical Medicine and Rehabilitation Diagnoses Low back pain, unspecified back pain laterality, unspecified chronicity, unspecified whether sciatica present Lumbar stenosis with neurogenic claudication Brooks Rey MD [address] [place] [address], [address] [address] [facility] Gisele Roberts [facility] Benjamin BERRY [address] [address] Referral ID Status Reason Start Date Expiration Date Visits Requested Visits Authorized [id number] Pending Review Specialty Services Required 08/27/2023 08/26/2024 1 1 Specialty Diagnoses / Procedures Referred By Contac t Referred To Contact Diagnoses Lumbar stenosis with neurogenic claudication Procedures EMG With NCV Leonid Su MD [address] [place] [address] Referral ID Status Reason Start Date Expiration Date V isits Requested Visits Authorized [id number] Pending Review 09/18/2023 09/17/2024 1 1 Reason Comments Follow-up EMG FU Left troch bu [facility] 09.18.- effective one month. Emg 2..24- [facility]. Awaiting to get injection in back with pain management Care Teams (unrecognized sec tion and content) 3Rd Mate Relationship Specialty Start Date End Date Viky Perez MD [address] [place] [address] PCP - General Family Medicine 03/22/20 3Rd Mate Relationship Specialty Start Date End Date Viky Perez MD [address] [place] [address] PCP - General Family Medicine 03/22/20 3Rd Mate Relationship Specialty Start Date End Date Viky Perez MD [address] [place] [address] PCP - General Family Medicine 03/22/20 3Rd Mate Relationship Specialty Start Date End Date Viky Perez MD [address] [place] [address] PCP - General Family Medicine 03/22/20 3Rd Mate Relationship Specialty Start Date End Date Viky Perez MD [address] [place], [place] [id number] PCP - General Family Medicine 03/22/20 Team Status: Active Member Role Status Dates Viky Perez MD Primary Care Provider Active Team Status: Inactive Member Role Status Dates Aminah Saenz APRN Attending Provider Active Start: February 12, 2024 End: February 12, 2024 Viky Perez MD Primary Care Provider Active Start: February 12, 2024 End: February 12, 2024 Goals (unrecognized section and content) Goals may be documented in a n alternate section FOR RECORDS PERTAINING TO PATIENTS WHO ARE OR HAVE BEEN ENROLLED IN A CHEMICAL DEPENDENCY/SUBSTANCEABUSE PROGRAM, SOME INFORMATION MAY BE OMITTED. This clinical summary was aggregated from multiple sources. Caution should be exercised in using it in the provision of clinical care. This summary normalizes information from multiple sources, and as a consequence, information in this document may materially change the coding, format and clinical context of patient data. In addition, data may be omitted in some cases. CLINICAL DECISIONS SHOULD BE BASED ON THE PRIMARY CLINICAL RECORDS. [facility]. provides no warranty or guarantee of the accuracy or completeness of information in this document.
[2024-06-16 08:12] VITALS: BP 136/82; PULSE 85; TEMP 36; O2SAT 97; BMI 22.1
[2024-06-16] MEDS: LACTATED RINGER'S SOLUTION 1,000 ML 50 ML IV (08:26)
[2024-06-16] MEDS: ONDANSETRON PF 4 MG/2 ML VIAL IV (08:49)
--- NOTE | 2024-06-16 09:22 | PC.NURSE ---
States no nausea at this time
--- NOTE | 2024-06-16 09:24 | PC.NURSE ---
c/o nausea; no emesis; order received from anesthesia
[2024-06-16 10:14] VITALS: BP 100/52; PULSE 74; TEMP 36.1; O2SAT 99
[2024-06-16 10:29] VITALS: BP 120/80; PULSE 78; O2SAT 95
[2024-06-16 10:44] VITALS: BP 125/82; PULSE 75; O2SAT 98
== END 2024-06-16 10:44 | disposition home or self-care (01) ==
PROVIDERS: PCP Family Medicine; Visit Provider Surgery
PROC: (CPT 00812; principal; 2024-06-16 08:45)
DX: Z12.11 Encounter for screening for malignant neoplasm of colon (principal); K62.1 Rectal polyp; I10 Essential (primary) hypertension; E03.9 Hypothyroidism, unspecified; J44.9 Chronic obstructive pulmonary disease, unspecified; M47.816 Spondylosis without myelopathy or radiculopathy, lumbar region; K21.9 Gastro-esophageal reflux disease without esophagitis; Z90.49 Acquired absence of other specified parts of digestive tract; Z90.710 Acquired absence of both cervix and uterus; Z87.891 Personal history of nicotine dependence
CPT/HCPCS: 00812; 45385; 88305; J2405; J2704

== ENCOUNTER 2025-10-06 14:23 | Outpatient (OUT) | payer MEDICARE, SELFPAY ==
--- OUTSIDE RECORDS SUMMARY | 2025-10-06 14:29 | XMS_ITS | Clinical Summary ---
Author Organization [employer] [facility] Address [id number] [address] [place] [address] Care Team Providers Care Neuropsychiatric Aide Name Role Phone Isacc Perez MD Primary Care Provider [phone] Allergies Active AllergyReactionsCriticalityNoted DateCommentsAmoxicillin-Pot Clavulanate Hives04/04/20211836SxpbasztugavzGigzv91/03/6333Fznztxzczanp17/10/2024 Tramadol-SigsrezanUipnb78/09/2024 Patient reported Tuberculin AbaBeoej92/08/2021 Medications MedicationSigDispense QuantityRefillsLast FilledStart DateEnd DateStatus eszopiclone (LUNESTA) 3 mg tablet Take 1 tablet (3 mg total) by mouth in the morning. Take immediately before bedtime .Active losartan (COZAAR) 50 mg tablet Take 1 tablet (50 mg total) by mouth in the morning.Active diphenhydrAMINE (BENADRYL) 25 mg capsule Take 1 capsule (25 mg total) by mouth every 6 (six) hours as needed for itching or allergies.Active ibuprofen (ADVIL,MOTRIN) 600 mg tablet Take 1 tablet (600 mg total) by mouth every 8 (eight) hours as needed for pain. Active conjugated estrogens (PREMARIN) vaginal cream Insert 0.625 g into the vagina every other day.Active tiZANidine (ZANAFLEX) 4 mg tablet Take 1 tablet (4 mg total) by mouth as needed for muscle spasms.Active fexofenadine (ORLANDO) 180 mg tablet Take 180 mg by mouth daily.Active SYNTHROID 50 mcg tablet Take 1 tablet (50 mcg total) by mouth in the morning.Active gabapentin, bulk, 100 % powder Indications:Chronic hip pain after total replacement of left hip jointFormula #8E: baclo2%+diclo3%+DMSO5%+gaba6%+lido2%+prilo2%. Apply 1-2 gm topically to affected area TID-QID. 120 g 11010/30/2023ctive pramipexole (MIRAPEX) 0.5 mg tablet Take 1 tablet (0.5 mg total) by mouth 3 (three) times a day.Active wemfubtvnli-lwzzuvdrf-aphgormu (TRELEGY ELLIPTA) 200-62.5-25 mcg blister with device Inhale 1 puff daily as needed.05/03/2024ctive Active Problems ProblemNoted DateDiagnosed DateSnapping hip syndrome, left07/03/2024Lumbar stenosis with neurogenic hzhkklfrjaut92/14/2024History of total hip arthroplasty, left07/03/2024ain due to left hip joint wnefvlbcnn41/24/2023Hip flexor tendinitis, left06/12/2023Trochanteric bursitis of left hip06/12/2023Hip weqnxaxft22/16/2021 Immunizations ImmunizationAdministration DatesNext DueCOVID-19, mRNA, LNP-S, PF, 100mcg/0.5mL Dose11/22/2020,10/25/2020 Family History Medical HistoryRelationNameCommentsBreast cancerDaughterAprilHyperlipidemia FatherDaryl WhaleyHypertensionFatherDaryl WhaleyArthritisMotherMartha Harjinder HyperlipidemiaMotherMartha WhaleyHypertensionMotherMartha WhaleyAnesthesia problemsNeg HxRelationNameStatusCommentsDaughterAprilFatherDaryl WhaleyMother Brittni Harjinder Social History Tobacco UseTypesPacks/DayYears UsedDateSmoking Tobacco: [id number] - 2017Smokeless Tobacco: Never Tobacco Cessation:Counseling Given: Not Answered Alcohol UseStandard Drinks/WeekCommentsNever0 (1 standard drink = 0.6 oz pure alcohol)AUDIT-CAnswerDate RecordedQ1: How often do you have a drink containing alcohol?Never06/03/2020Average Number of DrinksNot on file03/22/2020Frequency of Binge DrinkingNot on file03/22/2020ChildcareAnswerDate RecordedChildcareUnknown 03/31/2019EmploymentAnswerDate HpyokfqeVnzznridotKbgahyb87/12/2019Hunger ScreeningAnswerDate RecordedWithin the past 12 months we worried whether our food would run out before we got money to buy more.Never True09/18/2023Within the past 12 months the food we bought just didn't last and we didn't have money to get more.Never True3Purpose - LifeAnswerDate RecordedPurpose and direction in czoaFjfsabx56/12/2021CommentsNoSex and Gender Information ValueDate RecordedSex Assigned at NeakaXnobmv11/25/2022 4:29 PM ESTLegal Sex Xhjdkk7605/25/2015 11:28 AM EDTGender WgfkxcerElyren45/25/2022 4:29 PM ESTSexual QinluhbbcosQmiepmqa10/25/2022 4:29 PM EST Last Filed Vital Signs Vital SignReadingTime TakenCommentsBlood Sbemeknt224/76012/30/2023 9:00 AM EDT Kjikp4973/12/2024 9:00 AM WQWOxrfbteikdf83 ??C (96.8 ??F)06/11/2021 2:25 PM EDT Respiratory Lwpz120512/30/2023 9:00 AM EDTOxygen Rgnaqhgada32%06/11/2021 2:25 PM EDTInhaled Oxygen Concentration--Tvetyp64 kg (130 lb)11/29/2024 8:49 AM EST Utxufx293.6 cm (5' 4 )11/29/2024 8:49 AM ESTBody Mass Index22.31011/29/2024 8:49 AM EST Plan of Treatment DateTypeDepartmentCare Team (Latest Contact Info)Xrzqrcgyoli82/05/2026 8:00 AM ESTAppointment [facility] [address] [place] [address] 10/24/2025 8:15 AM ESTAppointment [facility] [address] [place] [phone] 10/24/2025 8:45 AM ESTAppointment [facility] [address] [place] [address] 10/24/2025 9:45 AM ESTAppointment [facility] [address] [place] [phone] 11/21/2025 8:30 AM ESTAppointment [facility] [address] [place] [phone] 11/28/2025 9:40 AM ESTOffice Visit [facility] [address] [phone] Cesar Su MD [address] [facility] [place] [address] 11/30/2025 10:30 AM ESTAppointment [facility] [address] [place] [phone] Health MaintenanceDue DateLast DoneCommentsDepression Icqgubklo07/11/1973 DTaP,Tdap and Td Vaccines (1 - Tdap)1980RSV ( or age 60+ yrs) (1 - Risk 50-74 years 1-dose series)2011Zoster (Shingles) Vaccine (1 of 2) 2011COVID-19 Vaccine (3 - 2024- season)/12/2020, 10/25/2020 Influenza Rqarbpu93/, 08/09/2021, 08/17/2020, Additional history existsAdult BMI Htomrmhzv65Tobacco Qrccxdhfc09/10/2026 11/29/2024 Medical Devices ImplantedTypeAreaManufacturerDevice IdentifierShelf Expiration DateModel / Serial / LotLinr Actb Mpact Flt Hc 36/E - [id number] Implanted:Qty: 1 on 04/04/[facility] ImplantLeft: HipMEDACTA INTL01//[id number] / / [id number] Actb Mpact No Hl 54mm - [id number] Implanted:Qty: 1 on 04/04/[facility] ImplantLeft: HipMEDACTA INTL02//[id number] / / [id number] Fem Masterloc Lat 4 - [id number] Implanted:Qty: 1 on 04/04/2021 by Juan Flores MD at [facility] ImplantLeft: HipMEDACTA INTL1/14/[id number] / / [id number] Fem 36mm Biolox Lexi S - [id number] Implanted:Qty: 1 on 04/04/2021 by Juan Flores MD at [facility] ImplantLeft: HipMEDACTA INTL111/11/[id number] / / [id number] Insurance Advance Directives * Full Code (Latest Code Status on File) Date ActivatedDate InactivatedComments04/04/2021 1:51 PM04/04/2021 10:26 PM Care Teams Team MemberRelationshipSpecialtyStart DateEnd Date Isacc Perez MD [address] [place] [address] PCP - GeneralFamily Medicine11/29/24
--- OUTSIDE RECORDS SUMMARY | 2025-10-06 14:30 | XMS_ITS | Patient Health Record ---
Author Organization [facility] in [place] Address [address] [place] [address] Care Team Providers Care Fitness Teacher Name Role Phone Ja Perez Primary Care Provider Allergies Allergen (clinical drug ingredient) Drug/Non Drug Allergy documented on EMR Reaction Allergy Type Onset Date Status amoxicillin / clavulanate Augmentin vomiting Drug Aller gy ActiveciprofloxacinCiprorashDrug AllergyActiveLevaquinvomitingDrug AllergyActive tramadolUltramhivesDrug AllergyActive Results Component Value Reference Range Notes UA DIP NONAUTO WO MICRO (810 02) - IN OFFICE (Not yet reviewed by provider) Interpretation: Performing Lab: Notes/Report: COLOR dark yellow CLARITYcloudyGLUCOSEnBILIRUBINnKETONEnSPECIFIC GRAVITY1.010BLOOD+QA9TBCQWNJ+ UROBILINOGENnNITRITE+LEUKOCYTE ESTERASE+UA DIP NONAUTO WO MICRO (43283) - IN OFFICE (Not yet reviewed by provider) Interpretation: Performing Lab: Notes/Report: COLORlight yellowCLARITYcloudyGLUCOSEnegBILIRUBINnegKETONEnegSPECIFIC GRAVITY 1.152ZNPXHlyhrmVL3BVOSDZPwyrQNLXYUAEELWEykgWYFVDEK++LEUKOCYTE ESTERASElargeCBC AND AUTO DIFF * Reviewed date:12/08/2024 07:28:18 PM Interpretation: Performing Lab:[facility] [address], [place]. [address] PH:[phone] Notes/Report:WBC COUNT7.44.0-11.0 X10E9/LRBC COUNT4.353.80-5.20 X10E12/L QLDBMVMPIT82.411.7-15.5 g/iRSPYSMMERUU01.335-47 %RTD2222-709 fLMCH28.627-34 pg MCHC32.532-36 g/dLRDW14.511.5-15.0 %PLATELET UHEXI667994-023 X10E9/LMPV7.77-12 fL% ANWWMZMTKSK45.6% JRTGJVSOXLQ37.8% MONOCYTES7.9% EOSINOPHILS0.0% BASOPHILS0.7 ABSOLUTE NEUTROPHIL5.11.5-6.6 X10E9/LABSOLUTE LYMPHOCYTE1.61.0-3.5 X10E9/L ABSOLUTE MONOCYTE0.60-0.9 X10E9/LABSOLUTE EOSINOPHIL0.00.0-0.4 X10E9/LABSOLUTE BASOPHIL0.10.0-0.2 X10E9/LPERFORMED AT [address] [address]APAR T3 Reviewed date:12/08/2024 07:28:18 PM Interpretation: Performing Lab:[facility]), [address] [place] [address]., [address] [address] PH:[phone] Notes/Report:FREE T32.742.50-3.90 pg/mLPERFORMED AT [address] [address]ZVT A1C (GLYCO-HGB) Reviewed date:12/08/2024 07:28:18 PM Interpretation: Performing Lab:[facility]), [address] [place] [address], [address] [address] PH:[phone] Notes/Report:HEMOGLOBIN A1C5.74.4-5.6 % NOTE Diabetes : > 6.4 % ADA Guidelines Prediabetes : 5.7 % to 6.4 % Use with caution in patients with abnormal hemoglobin variants as affected. the half-life of red blood cells and in vivo glycation rates are Normal : less than 5.7 % Result HgbA1c AVERAGE ZYSSPUX646TFMWIFSYM AT [address] [address]ZORUXMS PROFILE Reviewed date:12/08/2024 07:28:18 PM Interpretation: Performing Lab:[facility]), [address] [place] [address], [address] [address] PH:[phone] Notes/Report:TSH3.040.49-4.67 uIU/mLFREE T41.050.61-1.60 ng/dLPERFORMED AT [address] [address]MM DIP NONAUTO WO MICRO ([address]) - IN OFFICE (Not yet reviewed by provider) Interpretation: Performing Lab: Notes/Report: COLORlight yellowCLARITYclearGLUCOSEnegBILIRUBINnegKETONEnegSPECIFIC GRAVITY 1.534UNVDUjqcJR8ZXVXHBNkznFWDAANRECKHSyjsZMWNVNKlsiNGZSKXAZN ESTERASEnegLIPID PANEL Reviewed date:12/08/2024 07:28:18 PM Interpretation: Performing Lab:[facility]), [address] [place] [address], [address] [address] PH:[phone] Notes/Report:TVAJFEYMTKX103818-678 mg/fRLDBHKRAKIGCK8174-564 mg/dLHDL OFKTOWPCPUC05>39 mg/dL HDL <40 mg/dL - High Risk HDL > or = 40mg/dL- Desirable HDL >60 mg/dL - Negative Risk VERY LOW BLCXURSOTVK737-55 mg/dLLDL (CALC)74<130 mg/dL LDL >160 mg/dL - High Risk LDL <100 mg/dL - Desirable CHOLESTEROL:HDL2.11.0-5.0PERFORMED AT [address] [address]JWAK Reviewed date:12/08/2024 07:28:18 PM Interpretation: Performing Lab:[facility]), [address] [place] [address]., [address] [place] [address]. [address] PH:[phone] Notes/Report:HLAJ5176-101 ug/dLPERFORMED AT [address] [place] [address]FDCSVZRLPZXSY METABOLIC PANEL Reviewed date:12/08/2024 07:28:18 PM Interpretation: Performing Lab:[facility]), [address] [place] [address], SUITE [facility], [place]. [address] PH:[phone] Notes/Report:NPBKMR307621-007 mmol/LPOTASSIUM4.13.5-5.0 mmol/VOQLSYILP80347-456 mmol/LCARBON NFYMLLK2976-69 mmol/LANION ZIO02-02 mmol/LBLOOD UREA YHTPPIPM641-33 mg/dLCREATININE0.630.40-1.00 mg/dLMETHOD TRACEABLE TO IDMS ANACBZJXRAJWAEW37954- 99 mg/dLCALCIUM8.98.5-10.5 mg/dLTOTAL PROTEIN6.86.0-8.0 g/dLALBUMIN3.83.2-5.3 g/dLALKALINE NBPGHOCLHQU4986-642 U/PDSS007-64 U/YNPI70-14 U/LBILIRUBIN,TOTAL0.4 0.3-1.2 mg/dLeGFR (CKD-EPI) NON-RACE DEPENDENT>90>59 ml/min/1.73sq.m CKD-EPI 2020 equation that does not use a race coefficient. PERFORMED AT [address] [place] [address] Reported eGFR is based on the Reason For Referral No Information Medications Medication SIG (Take, Route, Frequency, Duration) Notes Start Date End Date Status Fluticasone-Salmeterol 115-21 MCG/ACT 2 puffs In halation Twice a day 5ActiveTriamcinolone Acetonide 0.1 %1gram application Externally twice a day5ActiveStiolto Respimat 2.5-2.5 MCG/ACT2 puffs Inhalation Once a day5ActiveEszopiclone 3 MG1 tablet Orally immediately before bedtime; Duration: 14 days5ActivetiZANidine HCl 4 MG2 tabs Orally qhs; Duration: 90 daysPRNActiveAlbuterol Sulfate HFA 108 (90 Base) MCG/ACTUSE 1 INHALATION EVERY 4 HOURS NEEDEDPRNActiveSynthroid 50 MCG1 tablet in the morning on an empty stomach Orally Once a day; Duration: 90 daysActiveCefdinir 300 MG2 capsule Orally once a day; Duration: 10 days5ActiveProtonix 40 MG1 tablet Orally Every Evening; Duration: 90 days01/12/2024ctivePramipexole Dihydrochloride 0.5 MG1 tablet Orally Once a day; Duration: 90 daysActive Singulair 10 MG1 tablet Orally Once a day; Duration: 90 days3Active Senna 8.6 MG2 tablets at bedtime as needed Orally Once a dayPRNActiveIpratropium [place] HFA 17 MCG/ACT2 puffs as needed Inhalation every 6 hrs5Active Ibuprofen 800 MG1 tablet with food or milk as needed Orally every 8 hrs; Duration: 90 daysPRNActiveZyrTEC 10 MG2 tablets Orally Once a dayActiveFerrous Sulfate 325 (65 Fe) MG1 tablet Orally twice daily; Duration: 90 days12/10/2024 ActivevalACYclovir HCl 500 MG1 tablet Orally twice a day; Duration: 10 daysPRN 5ActiveOndansetron 4 MG1 tablet on the tongue and allow to dissolve Orally Once a day as neededPRNActiveLosartan Potassium 50 MG1 tablet Orally Once a day; Duration: 90 daysActive Social History Tobacco Use: Social History Observation Description Date Details (start date - stop date) Former Smoker NA - NA Tobacco Use/Smoking Question Answer Notes Patient is a former smoker Alcohol Screen (Audit-C) Question Answer Notes Did you have a drink containing alcohol in the p ast year? No Kvucmk3LpivobhaorhuxfTeljcnqlSLQPH-T (Standard) Question Answer Notes Did you have a drink containing alcohol in the p ast year? No Lzrkgx6GunoywowrjobutYewkzklo Problems Problem Type SNOMED Code ICD Code Onset Dates Problem Status W/U Status Risk Notes Problem Insomnia (324899933) Insomnia, unspecifie d (G47.00) ActiveconfirmedProblemLocalized, primary osteoarthritis of the pelvic region and thigh (930252902)Unilateral primary osteoarthritis, left hip (M16.12)Active confirmedProblemLumbosacral spondylosis without myelopathy (35013519)Spondylosis without myelopathy or radiculopathy, lumbar region (M47.816)Activeconfirmed ProblemLymphadenopathy (32843911)Enlarged lymph nodes, unspecified (R59.9)Active confirmedProblemHypertension (97182019)Hypertension (I10)ActiveconfirmedProblem Anxiety (09482518)Anxiety (F41.9)ActiveconfirmedProblemInsomnia (931341334) Insomnia (G47.00)ActiveconfirmedProblemEczema (23738473)Eczema (L30.9)Active confirmedProblemUrinary incontinence (899590411)Urinary incontinence (R32)Active confirmedProblemMigraine (73658102)Migraine (G43.909)ActiveconfirmedProblem Femoroacetabular impingement (297548117)Left hip impingement syndrome (M76.12) ActiveconfirmedProblemSciatica (99808156)Sciatica of left side (M54.32)Active confirmedProblemMenopause (730917592)Hot flashes (N95.1)ActiveconfirmedProblem Hearing loss (96089518)Hearing loss (H91.90)ActiveconfirmedProblemLocalized, primary osteoarthritis of the pelvic region and thigh ()Osteoarthritis of right hip (M16.11)ActiveconfirmedProblemWell adult (991006545)Well adult (Z00.00)ActiveconfirmedProblemSciatica (20449317)Sciatica (M54.30)Active confirmedProblemTobacco user (869804611)Nicotine addiction (F17.200)Active confirmedProblemBenign neoplasm of cerebral meninges (58544205)Meningioma (D32.9)ActiveconfirmedProblemLocalized, primary osteoarthritis of the pelvic region and thigh (286844875)Osteoarthritis of left hip (M16.12)Activeconfirmed ProblemSeasonal allergic rhinitis (712214139)Allergic rhinitis, seasonal (J30.2) ActiveconfirmedProblemPain in coccyx (finding) (35854790)Coccyx pain (M53.3) ActiveconfirmedProblemEmphysema (27632384)Emphysema (J43.9)Activeconfirmed ProblemGastro-esophageal reflux disease (025607268)Gastro-esophageal reflux disease (K21.9)ActiveconfirmedProblemArthritis of left hip (5410416504882624) Arthritis of left hip (M16.12)ActiveconfirmedProblemLow back pain (320264122)Low back pain, unspecified (M54.50)ActiveconfirmedProblemNonspecific low back pain (M54.50)Activeconfirmed Vital Signs Blood pressure diastolic 82 mm Hg 10/06/2025 Kykuyx82 in10/06/2025lood pressure aitbnxnf064 mm Hg10/06/20250691Iwklll438.0 lbs 10/06/2025BMI24.03 kg/m210/06/2025 Procedures Procedure Date Ordered Date Performed Result Body Sit e CARDIO Stress Test - Cardiolite 09/19/2025 N/A Encounters Encounter Location Date Provider Diagnosis [facility] [address] [place] [address] 04/25/2025 Ja Perez Dysuria R30.0 [facility] [address] [place] [address] 08/08/2025 Ja [facility] [place] [address] 08/24/2025[facility] [place] [address]/[facility] [place] [address]/Doug HoyEmphysema J43.9[facility] [place] [address]/[facility] [place] [address]/07/2025 [facility] [place] [address]/Doug HoyHypertension V21QuyhseaS[facility] [place] [address]/[facility] [place] [address]/[facility] [place] [address]/06/2025 Ja [facility] [place] [facility] [place] [address] 11/08/2024[facility] [place] [address]/Doug HoyNicotine addiction F17.200[facility] [place] [address]/Doug HoyBreast cancer screening Z12.31[facility] [place] [address]/08/2025[facility] [place] [address]/Doug HoyUrinary urgency R39.15[facility] [place] [address]/Doug Hoy Dysuria R30.0[facility] [place] [address]/10/2024Doug HoyUrinary incontinence R32 ; Hypertension I10 ; Insomnia, unspecified G47.00 ; Insomnia G47.00 ; Gastro-esophageal reflux disease K21.9 and Emphysema J43.9BS[facility] [place] [address]/05/2025Doug HoyWell adult Z00.00 Assessments Encounter Date Diagnosis (ICD Code) Assessment Notes Treatment Notes Treatment Clinical Notes Section Notes 10/27/2024 Well adult (ICD-10 - Z00.00) 04/06/2025Dysuria (ICD-10 - R30.0)09/19/2025Urinary incontinence (ICD-10 - R32) 09/19/2025Hypertension (ICD-10 - I10)09/19/2025Insomnia, unspecified (ICD-10 - G47.00)10/06/2025Urinary urgency (ICD-10 - R39.15)11/14/2024Nicotine addiction (ICD-10 - F17.200)11/18/2024reast cancer screening (ICD-10 - Z12.31)12/30/2024 Hypertension (ICD-10 - I10)04/25/2025Dysuria (ICD-10 - R30.0)09/13/2025Emphysema (ICD-10 - J43.9)09/19/2025Insomnia (ICD-10 - G47.00)09/19/2025Gastro-esophageal reflux disease (ICD-10 - K21.9)09/19/2025Emphysema (ICD-10 - J43.9) Plan Of Treatment Pending Test Test Name Order Date CMP (COMPLETE METABOLIC PANEL) 3 HEMOGLOBIN A1C (GLYCO) 10/27/2024 HEMOGLOBIN A1C (GLYCO) 08/08/2023 HEMOGLOBIN A1C (GLYCO) 09/19/2025 IRON, TOTAL 09/19/2025 IRON, TOTAL 10/27/2024 IRON, TOTAL 08/08/2023 LIPID PANEL (CHOL/TRIG/HDL/LDL) 08/08/20 23 LIPID PANEL (CHOL/TRIG/HDL/LDL) 10/27/19 25 LIPID PANEL (CHOL/TRIG/HDL/LDL) 09/19/20 25 CBC WITH DIFF (EXP 08/2025) 10/27/2024 CBC WITH DIFF (EXP 08/2025) 08/08/2023 VITAMIN D, 25 LEVEL (TOTAL) 08/08/2023 VITAMIN D, 25 LEVEL (TOTAL) 09/19/2025 MAMM Mammograms CAD 08/08/2023 MRI Brain w/o contrast 05/08/2023 CARDIO Stress Test - Cardiolite 09/19/20 25 Urinalysis Microscopic 10/06/2025 UA DIP NONAUTO WO MICRO (04488) - IN OFF ICE 10/06/2025 UA DIP NONAUTO WO MICRO (56188) - IN OFF ICE 04/06/2025 UA DIP NONAUTO WO MICRO (47276) - IN OFF ICE 09/19/2025 CT Chest Low Dose for Screening* 023 MAMM SCREEN BILAT ELLIE 3D GLOBAL* 2024 STOOL OCCULT BLOOD 09/19/2025 BNP 09/19/2025 CULTURE URINE 10/06/2025 MRI LSPINE WO CON 05/09/2023 THYROID PANEL (T4/TSH/FREE T3) 5 THYROID PANEL (T4/TSH/FREE T3) 3 THYROID PANEL (T4/TSH/FREE T3) 5 MM screening mammo BI 09/19/2025 CT lung screening low-dose 08/08/2023 CT lung screening low-dose 11/14/2024 MM diagnostic mammo BI 10/27/2024 CT CHEST LOW DOSE (LDCT) 09/19/2025 CMP (COMP MET GAINES) w/eGFR CKD-EPI 2024 CBC WITH DIFF 09/19/2025 Insurance Providers Payer Name Payer Address Payer Phone Subscriber Number Group Number Insured Name Patient Relationship to Insured Coverage Start Date Coverage End Date [employer] [address] [place], [place] [id number] Stefany Paige (Ne)Self - patient is the insured Medications Administered Medication Instructions Date of Administration Dosage Notes DEPO-Medrol lv02Jqtylpd-[id number] dq811Iqdxwrd-1229/02/2024120 mg120 Ketorolac Qsjtjmltziwg81/20/202360 it51Stoawzxnq Subkhetdfwjx90/02/202460 mg60 Orphenadrine Nrnqmbc11 pu89Tnvhdtpoayel Pltnfif28 mg60 Medical (General) History Medical History History ICD Code Sciatica of left side M54.32 Nonspecific low back pain M54.50 Coccyx pain M53.3 Allergic rhinitis, seasonal J30.2 Osteoarthritis of left hip M16.12 Arthritis of left hip M16.12 Well adult Z00.00 Unilateral primary osteoarthritis, left hip M16.12 Osteoarthritis of right hip M16.11 Insomnia G47.00 Sciatica M54.30 Hot flashes N95.1 Hearing loss H91.90 Gastro-esophageal reflux disease K21.9 Migraine G43.909 Eczema L30.9 Nicotine addiction F17.200 Hypertension I10 Anxiety F41.9 Low back pain, unspecified M54.50 Meningioma D32.9 tibia fracture rotator cuff teartrochanteric bursitis of left hipSurgical History Surgery Date(Month/Year) Cataract OD 01/2023 left hip replacement 03/2021 Herniorrhaphy jrxpkswxuts1-84-64Gmmzqhoi Tendon Qcsrxx1008/05/2023Hospitalization History Reason Date(Month/Year) see above
--- OUTSIDE RECORDS SUMMARY | 2025-10-06 14:30 | XMS_ITS | Clinical Summary ---
Author Organization [facility] Address [address] [place] [address] Care Team Providers Care Embroiderer Name Role Phone Isacc Perez MD Primary Care Provider [phone] Allergies Active AllergyReactionsCriticalityNoted ZnljItgopeseThyabrulfkefv09/09/2003 hives & anaphylactic shock Hhqteves38/09/2003 (Valium) - becomes very hyper Dhvumrke66/04/3434Lbgefcuwx23/19/4460Fzscjtkrspubewlt42/09/2003 (Compazine) - dystonic Qocwuogvobl46/09/2003 (Imitrex) - sob, gi upset, chest tightness Eppejfyi06/09/2003 (ULtram) hives Medications MedicationSigDispense QuantityRefillsLast FilledStart DateEnd DateStatus MAXALT 10MG TABLET as tbjlez665Active MIDRIN CAPSULE as fbruux826Active ZANAFLEX 4MG TABLET PO as adkkth226Active FLEXERIL 10MG TABLET as aohfqy097Active BENADRYL 50MG KAPSEALS 1 cap. at hs for sleep zvn635Active MOTRIN 800MG TABLET three times a puo051Active TYLENOL EX-STR 500MG CAPLET jennifer 4 hours as eoberm936Active Family History Medical HistoryRelationCommentsGenitourinary ()Daughterrenal calculi & chronic UTI'sArthritisFatherHeartFatherangioplasty & CADHypertensionFatherThyroidFather hypothyroidIschemic Heart DiseaseMaternal GrandfatherCAD & MIIschemic Heart DiseaseMaternal UncleCAD & MIArthritisMotherHypertensionMotherEmphysemaPaternal GrandfatherCancerPaternal Uncledied of renal cancerRelationStatusComments DaughterFatherMaternal GrandfatherMaternal UncleMotherPaternal Grandfather Paternal Uncle Social History Tobacco UseTypesPacks/DayYears UsedDateSmoking Tobacco: Every EwyNbjnfmpxmw516 Alcohol UseStandard Drinks/WeekCommentsYes0 (1 standard drink = 0.6 oz pure alcohol)6-12 oz. beer per dayCommentsNoSex and Gender InformationValue Date RecordedSex Assigned at BirthNot on fileLegal FvgYcuzdz38/02/2012 10:00 AM ESTGender IdentityNot on fileSexual OrientationNot on file Last Filed Vital Signs Vital SignReadingTime TakenCommentsBlood Bhtrymzv971/9711/07/2003 2:44 PM EST Cspuk560811/07/2003 2:44 PM SEHMdgiwlcphru16.6 ??C (97.9 ??F)11/07/2003 2:44 PM ESTRespiratory Rate--Oxygen Saturation--Inhaled Oxygen Concentration--Hbxshe37.6 kg (166 lb 10.7 oz)11/07/2003 2:44 PM EKUXtxhbl866.6 cm (5' 4 )09/22/2003 9:30 AM ESTBody Mass Index28.6109/22/2003 9:30 AM EST Plan of Treatment Health MaintenanceDue DateLast DoneCommentsAnxiety Kjdhojfbn80/11/1979Depression Kdtokpwez81/11/1979HIV Uaadqledx12/11/1979Hepatitis C Ygimenfdc62/11/1979 DTaP,Tdap,Td Vaccine (1 - Tdap)1980Cervical Cancer Shubzmoax53/11/1982 Mammogram Tgyckhsxp54/11/2001CT Axacxtrwuqze45/11/2006Cologuard (FIT-DNA) 07/30/20067496Tgoyihegkfs96/11/2006Colorectal Cancer Rlgpyhwhf72/11/2006Fecal Occult Blood2006Lipid Eqtytfoqt03/11/9894Yczwuoummbdjy67/11/2006Diabetes Dytmrtebh54, 09/22/2003Pneumococcal Vaccine: 50+ (1 of 1 - PCV)2011Shingrix Vaccine (1 of 2)2011Covid-19 Vaccine (1 - 2024- season)2025Influenza Vaccine (#1)2025RSV Vaccine (1 - 1-dose 75+ series)2036 Procedures Procedure NamePriorityDate/TimeAssociated DiagnosisCommentsBASIC METABOLIC PANEL 09/23/2003 6:07 PM EST from Last 3 Months or Most Recently Relevant to Health Maintenance Results * (ABNORMAL) BASIC METABOLIC PNL (09/23/2003 6:07 PM EST)ComponentValueRef Range Test MethodAnalysis TimePerformed AtPathologist AprlvshbxXyoibpf210(A)65 - 110 mg/dLO[facility] EWKJUE80 - 25 mg/dLOHIO [facility]LEY [facility] LABCreatinine0.5(A) 0.7 - 1.4 mg/dLOH[facility]LEY [facility] RWKTzmuit566584 - 148 mmol/[facility] LABPotassium3.63.5 - 5.0 mmol/[facility] OPWCjeqybws26723 - 110 mmol/L [facility] WSPMS943(A)24 - 32 mmol/[facility] LABAnion Btw693 - 15 mmol/[facility] LABCalcium7.9(A)8.5 - 10.5 mg/dLOHIO [facility]LEY [facility] LAB Specimen (Source)Anatomical Location / LateralityCollection Method / Volume Collection TimeReceived Time09/23/2003 6:07 PM EST Narrative Authorizing ProviderResult TypeResult StatusJoung H LeeLABORATORYFinal Result Performing OrganizationAddressCity/State/ZIP CodePhone Number [facility] [address] [place] [address] from Last 3 Months or Most Recently Relevant to Health Maintenance Care Teams Team MemberRelationshipSpecialtyStart DateEnd Isacc Perez MD [address] [place] [address] PCP - Odsztqd71/6/03
[2025-10-06 15:07] LABS: Glucose Urine UA NEGATIVE (NEGATIVE)
[2025-10-06 15:17] LABS: Cast Seen? NONE SEEN #/LPF (NONE SEEN); Crystals Seen? None Seen #/HPF (None Seen); Urine Culture Indicated ALREADY ORDERED
== END 2025-10-06 14:24 | disposition home or self-care (01) ==
LOC: LAB 14:27
PROVIDERS: PCP Family Medicine; Visit Provider Family Medicine
DX: R39.15 Urgency of urination (principal)
CPT/HCPCS: 81001; 87086; 87088; 87186